=== PATIENT | female | born 1990 | race Caucasian/White ===

== ENCOUNTER 2016-06-16 14:01 | Observation (INO) | payer SELFPAY ==
[~2016-06-16] VITALS: Ht 162.6 cm; Wt 55.7 kg
[~2016-06-16 14:01] MED LIST: CEFTIN250 MG PO; CEPHALEXIN500 M1 PO; CIPRO 500MG TA500 MG PO; LORTAB 5/500 501 TAB PO; LORTAB 7.5/5001 TAB PO; NO HOME MEDICATIONS; NORCO 325 MG-51 TAB PO; NORCO 325 MG-7.1 TAB PO; PEPCID 20MG TAB20 MG PO
[2016-06-16 14:45] LABS: BASO % 0.3 % (0.0-2.0); EOS % 0.3 % (0-4.0); GRAN % 80.7 % (42.2-75.2); HEMATOCRIT 40.2 % (37.0-47.0); HEMOGLOBIN 13.5 g/dl (12.5-16.0); LYMPH % 13.2 % (20.0-51.0); MEAN CELL VOLUME 90 fl (80.0-100.0); MEAN CORPUSCULAR HEMOGLOBIN 30 pg (27.0-31.0); MEAN CORPUSCULAR HGB CONC 34 g/dl (33.0-37.0); MEAN PLATELET VOLUME 9.5 fl (7.4-10.4); MONO # 0.4 (0.1-0.6); MONO % 5.2 % (1.7-9.3); PLATELET COUNT 332 K/mm3 (130-400); RED BLOOD COUNT 4.49 M/mm3 (4.10-5.30); REDCELL DISTRIBUTION WIDTH-CV 12.2 % (11.5-14.5); WHITE BLOOD COUNT 7.5 K/mm3 (4.8-10.8)
[2016-06-16 14:57] LABS: ADJUSTED CALCIUM 8.8 mg/dL (8.4-10.2); ALANINE AMINOTRANSFERASE 21 U/L (9-52); ALBUMIN 4.6 gm/dL (3.5-5.0); ALKALINE PHOSPHATASE 62 U/L (50-136); AMYLASE 81 U/L (30-110); ANION GAP 16 mmol/L (7-16); BILIRUBIN,TOTAL 0.5 mg/dL (0.0-1.0); BLOOD UREA NITROGEN 13 mg/dL (7-17); CALCIUM 9.3 mg/dL (8.4-10.2); CARBON DIOXIDE 24 mmol/L (22-30); CHLORIDE 99 mmol/L (98-107); CREATININE, serum 0.72 mg/dL (0.52-1.25); GLUCOSE 87 mg/dL (74-106); LIPASE 49 U/L (23-300); POTASSIUM 3.6 mmol/L (3.4-5.0); SODIUM 139 mmol/L (137-145); TOTAL PROTEIN 8.1 gm/dL (6.4-8.2)
[2016-06-16 18:00] LABS: PH 7 (5-8); URINE APPEARANCE Clear; URINE BACTERIA None Seen /hpf; URINE BILIRUBIN Negative (NEGATIVE); URINE BLOOD Negative (NEGATIVE); URINE COLOR Straw; URINE GLUCOSE 1+ (NEGATIVE); URINE KETONE Trace (NEGATIVE); URINE RBC 0-2 /hpf; URINE UROBILINOGEN Negative (NEGATIVE); URINE WBC 0-2 /hpf
[2016-06-16 20:10] VITALS: BP 124/77; PULSE 66; TEMP 97.4
[2016-06-17] VITALS (9 sets, daily range): BP systolic 113–120; BP diastolic 60–80; PULSE 79–108; TEMP 97.8–99.1
[2016-06-17 07:57] LABS: BASO % 0.2 % (0.0-2.0); EOS # 0.1 (0.0-0.7); EOS % 0.8 % (0-4.0); GRAN # 4.3 (1.4-6.5); GRAN % 72.9 % (42.2-75.2); HEMATOCRIT 40.9 % (37.0-47.0); HEMOGLOBIN 13.8 g/dl (12.5-16.0); LYMPH # 1.1 (1.2-3.4); LYMPH % 17.9 % (20.0-51.0); MEAN CELL VOLUME 88 fl (80.0-100.0); MEAN CORPUSCULAR HEMOGLOBIN 30 pg (27.0-31.0); MEAN CORPUSCULAR HGB CONC 34 g/dl (33.0-37.0); MEAN PLATELET VOLUME 9.9 fl (7.4-10.4); MONO # 0.5 (0.1-0.6); MONO % 7.9 % (1.7-9.3); PLATELET COUNT 325 K/mm3 (130-400); RED BLOOD COUNT 4.65 M/mm3 (4.10-5.30); REDCELL DISTRIBUTION WIDTH-CV 12.1 % (11.5-14.5); WHITE BLOOD COUNT 5.9 K/mm3 (4.8-10.8)
[2016-06-17 08:06] LABS: ADJUSTED CALCIUM 9.2 mg/dL (8.4-10.2); ALBUMIN 3.7 gm/dL (3.5-5.0); BILIRUBIN,TOTAL 0.7 mg/dL (0.0-1.0); POTASSIUM 3.3 mmol/L (3.4-5.0); TOTAL PROTEIN 6.9 gm/dL (6.4-8.2)
[2016-06-17 08:26] LABS: CREATININE, serum 0.71 mg/dL (0.52-1.25)
[2016-06-17] MEDS ORDERED: NORCO 325 MG-51 TAB PO (13:50)
[2016-06-17] MEDS ORDERED: ZOFRAN ODT4 MG PO (13:51)
[2016-06-17] MEDS ORDERED: COLACE 100100 MG/CAP PO (13:51)
[2016-06-17] MEDS ORDERED: MOTRIN 600600 MG/TAB PO (13:52)
== END 2016-06-17 18:30 | disposition home or self-care (01) ==
LOC: COL.ER 14:01 → SURG 17:32
PROVIDERS: Nurse Practitioner; Surgery
DX: K80.10 Calculus of gallbladder with chronic cholecystitis without obstruction (principal)
CPT/HCPCS: G0378; J0690; J1100; J2270; J2405; J2543; J2550; J2704; J2765; J3010; J7030; J7040; J7050; J7120; Q9967

== ENCOUNTER 2019-06-25 16:44 | Emergency (ER) | payer SELFPAY ==
[~2019-06-25] VITALS: Ht 162.6 cm; Wt 52.3 kg
[~2019-06-25 16:44] MED LIST changes: +COLACE 100100 MG/CAP PO; +MOTRIN 600600 MG/TAB PO; +ZOFRAN ODT4 MG PO
[2019-06-25 16:51] VITALS: TEMP 98.9
[2019-06-25 17:15] VITALS: BP 130/90; PULSE 107
[2019-06-25] MEDS ORDERED: CLEOCIN HC150 MG/CAP PO (17:28)
[2019-06-25] MEDS ORDERED: NORCO 325 MG-51 TAB PO (17:28)
== END 2019-06-25 17:45 | disposition home or self-care (01) ==
LOC: COL.ER 16:44
DX: K04.7 Periapical abscess without sinus (principal); F17.210 Nicotine dependence, cigarettes, uncomplicated

== ENCOUNTER 2019-12-20 09:36 | Emergency (ER) | payer SELFPAY ==
[~2019-12-20] VITALS: Ht 162.6 cm; Wt 54.5 kg
[~2019-12-20 09:36] MED LIST changes: +CLEOCIN HC150 MG/CAP PO
[2019-12-20 09:41] VITALS: TEMP 97.6
[2019-12-20] MEDS ORDERED: AMOXICILLIN 50500 MG PO (10:26)
[2019-12-20 11:00] VITALS: BP 155/89; PULSE 96
== END 2019-12-20 11:00 | disposition home or self-care (01) ==
LOC: COL.ER 09:36
DX: K02.9 Dental caries, unspecified (principal); Z20.2 Contact with and (suspected) exposure to infections with a predominantly sexual mode of transmission; Z88.8 Allergy status to other drugs, medicaments and biological substances

== ENCOUNTER 2020-08-01 22:43 | Emergency (ER) | payer SELFPAY ==
[~2020-08-01 22:43] MED LIST changes: +AMOXICILLIN 50500 MG PO
== END 2020-08-02 00:30 | disposition left against medical advice (07) ==
LOC: COL.ER 22:43
DX: R69 Illness, unspecified (principal)